=== PATIENT | female | born 1995 | race Two or more races ===

== ENCOUNTER 2016-11-11 19:47 | Emergency (ER) | payer OTHER, MEDICAID ==
[~2016-11-11] VITALS: Ht 149.9 cm; Wt 96.4 kg
[~2016-11-11 19:47] MED LIST: OXYC-302 PO
[2016-11-11 20:59] LABS: HCG UR OBC PASS
[2016-11-11] MEDS ORDERED: CEFTRIAXONE 250 MG ONE (21:25)
[2016-11-11] MEDS ORDERED: AZITHROMYCIN 250 MG TABLET ONE (21:25)
[2016-11-11] MEDS ORDERED: AZITHROMYCIN 500 MG TABLET PO ONE (21:30)
[2016-11-11] MEDS ORDERED: CEFTRIAXONE 250 MG IM ONE (21:30)
[2016-11-11 21:37] VITALS: BP 127/70
== END 2016-11-11 22:06 | disposition home or self-care (01) ==
LOC: ED 20:50
DX: R10.31 Right lower quadrant pain (principal); R30.0 Dysuria
CPT/HCPCS: 81003; 81025; 96372; 99284; J0696

== ENCOUNTER 2017-11-01 00:45 | Emergency (ER) | payer MEDICAID, OTHER ==
[~2017-11-01] VITALS: Ht 149.9 cm; Wt 107.5 kg
[2017-11-01 00:49] VITALS: BP 100/48
[2017-11-01] MEDS ORDERED: IBUPROFEN 200 MG TABLET PO ONE (02:30)
== END 2017-11-01 03:37 | disposition home or self-care (01) ==
LOC: ED 03:26
DX: M76.41 Tibial collateral bursitis [Pellegrini-Stieda], right leg (principal); M79.644 Pain in right finger(s)
CPT/HCPCS: 29260; 99284

== ENCOUNTER 2018-01-02 17:03 | Emergency (ER) | payer MEDICAID, OTHER ==
[~2018-01-02] VITALS: Ht 149.9 cm; Wt 104.2 kg
[2018-01-02 17:06] VITALS: BP 144/95
[2018-01-02] MEDS ORDERED: IBUPROFEN 200 MG TABLET ONE (17:20)
[2018-01-02] MEDS ORDERED: IBUPROFEN 200 MG TABLET PO ONE (17:30)
== END 2018-01-02 18:07 | disposition home or self-care (01) ==
LOC: ED 17:56
DX: S50.02XA Contusion of left elbow, initial encounter (principal); W22.8XXA Striking against or struck by other objects, initial encounter; Y93.89 Activity, other specified; Y99.8 Other external cause status; Y92.009 Unspecified place in unspecified non-institutional (private) residence as the place of occurrence of the external cause
CPT/HCPCS: 99284

== ENCOUNTER 2018-01-06 20:44 | Emergency (ER) | payer MEDICAID ==
[~2018-01-06] VITALS: Ht 149.9 cm; Wt 106.5 kg
[2018-01-06 21:37] LABS: BASOPHILS # (AUTO) 0.08 x10^3/uL (0-0.1); BASOPHILS % (AUTO) 1 % (0-1); EOSINOPHILS # (AUTO) 0.09 x10^3/uL (0-0.4); EOSINOPHILS % (AUTO) 1 % (1-7); LYMPHOCYTES # (AUTO) 3.68 x10^3/uL (1-3.4); LYMPHOCYTES % (AUTO) 36 % (22-44); MD NO; MEAN CORPUSCULAR HEMOGLOBIN 29.3 pg (27.0-34.8); MEAN CORPUSCULAR HGB CONC 33.6 g/dL (32.4-35.8); MEAN CORPUSCULAR VOLUME 87.2 fL (80-100); MEAN PLATELET VOLUME 8.4 fL (7.4-10.4); MONOCYTES # (AUTO) 0.54 x10^3/uL (0.2-0.8); MONOCYTES % (AUTO) 5 % (2-9); NEUTROPHILS # (AUTO) 5.89 x10^3/uL (1.8-6.8); NEUTROPHILS % (AUTO) 57 % (42-75); PLATELET COUNT 359 x10^3/uL (130-400); RED BLOOD COUNT 4.69 x10^6/uL (3.82-5.3); RED CELL DISTRIBUTION WIDTH 13.3 % (9.6-15.2)
[2018-01-06 21:48] LABS: INTERNATIONAL NORMALIZED RATIO 0.97 (0.93-1.1)
[2018-01-06 21:50] LABS: MICROSCOPIC INDICATED
[2018-01-06 21:50] LABS: ALANINE AMINOTRANSFERASE 44 U/L (12-78); ALBUMIN 3.5 g/dL (3.4-5.0); ANION GAP 7 mmol/L (5-15); CALCIUM 8.4 mg/dL (8.5-10.1); CHLORIDE 109 mmol/L (98-107)
[2018-01-06 21:51] LABS: HCG UR SG 1.031 (1.003-1.030)
[2018-01-06 21:52] LABS: ALKALINE PHOSPHATASE 85 U/L (45-117); BILIRUBIN,TOTAL 0.4 mg/dL (0.2-1.0)
[2018-01-06 22:00] LABS: CULTURE INDICATED? NO
[2018-01-06 22:53] VITALS: BP 109/74
== END 2018-01-06 22:58 | disposition home or self-care (01) ==
LOC: ED 22:08
DX: N93.9 Abnormal uterine and vaginal bleeding, unspecified (principal); R42 Dizziness and giddiness
CPT/HCPCS: 36415; 76830; 80053; 81001; 81025; 85025; 85610; 85730; 99285

== ENCOUNTER → 2018-01-15 | Outpatient (CLI) | payer OTHER, MEDICAID | END | disposition home or self-care (01) | LOC: LAB 11:28 | PROVIDERS: ATTEND Obstetrics & Gynecology | DX: N92.1 Excessive and frequent menstruation with irregular cycle (principal) | CPT/HCPCS: 36415; 82670; 83001; 83002; 84146; 84402; 84403; 84443 ==

== ENCOUNTER 2018-07-20 19:44 | Emergency (ER) | payer OTHER, MEDICAID ==
[~2018-07-20] VITALS: Ht 149.9 cm; Wt 106.9 kg
[2018-07-20 20:03] VITALS: BP 135/92
--- NOTE | 2018-07-20 20:47 | NUR ---
All results back. Pt up for recheck.
[2018-07-20] MEDS ORDERED: ALBUTEROL/IPRATROPIUM 2.5MG/0.5MG, 3 ML ONE (21:18)
[2018-07-20] MEDS ORDERED: EPINEPHRINE 1 MG/ML, 1ML ONE (21:19)
== END 2018-07-20 21:30 | disposition home or self-care (01) ==
LOC: ED 20:46
DX: J42 Unspecified chronic bronchitis (principal); B96.89 Other specified bacterial agents as the cause of diseases classified elsewhere
CPT/HCPCS: 71046; 99283

== ENCOUNTER 2019-04-16 21:36 | Emergency (ER) | payer OTHER, MEDICAID ==
[~2019-04-16] VITALS: Ht 149.9 cm; Wt 108.6 kg
[2019-04-16 21:40] VITALS: BP 129/86
[2019-04-16] MEDS ORDERED: LIDOCAINE-MPF 1%, 5ML ONE (22:10)
[2019-04-16] MEDS ORDERED: LIDOCAINE-MPF 1%, 5ML INFIL ONE (22:30)
[2019-04-16] MEDS ORDERED: LIDOCAINE 1%, 10ML INFIL ONE (22:30)
[2019-04-16] MEDS ORDERED: NEOSPORIN OINT. PKT 1 PACKET ONE ×2 (22:57→23:04)
== END 2019-04-16 23:13 | disposition home or self-care (01) ==
LOC: ED 23:07
DX: L03.032 Cellulitis of left toe (principal)
CPT/HCPCS: 10060; 99283

== ENCOUNTER 2019-04-27 10:01 | Emergency (ER) | payer OTHER, MEDICAID ==
[~2019-04-27] VITALS: Ht 149.9 cm; Wt 109.8 kg
[2019-04-27 10:17] VITALS: BP 152/87
--- NOTE | 2019-04-27 11:08 | NUR ---
PT STATES SHE STEPPED ON A METAL PIECE OF A DOG CRATE LAST NIGHT. PT STATES BLEEDING, UNKNOWN TETANUS.
[2019-04-27] MEDS ORDERED: DIPH,PERTUSS(ACELL),TET VAC/PF 0.5 ML IM-VACC ONE ×2 (11:15→11:30)
[2019-04-27] MEDS ORDERED: NEOSPORIN OINT. PKT 1 PACKET ONE (11:21)
--- NOTE | 2019-04-27 11:54 | NUR ---
Patient/Caregiver given discharge instructions and they have confirmed that they understand the instructions. Patient ambulatory with steady gait.
== END 2019-04-27 12:19 | disposition home or self-care (01) ==
LOC: ED 12:06
DX: S91.332A Puncture wound without foreign body, left foot, initial encounter (principal); X58.XXXA Exposure to other specified factors, initial encounter; Y93.89 Activity, other specified; Y92.009 Unspecified place in unspecified non-institutional (private) residence as the place of occurrence of the external cause; Y99.8 Other external cause status
CPT/HCPCS: 90471; 90715

== ENCOUNTER 2019-05-15 20:08 | Emergency (ER) | payer OTHER, MEDICAID ==
[~2019-05-15] VITALS: Ht 149.9 cm; Wt 110.8 kg
[2019-05-15 20:11] VITALS: BP 132/82
[2019-05-15] MEDS ORDERED: IBUPROFEN 600 MG TABLET ONE (20:45)
[2019-05-15] MEDS ORDERED: DIAZEPAM 5 MG TABLET ONE (20:45)
[2019-05-15] MEDS ORDERED: IBUPROFEN 200 MG TABLET ONE (20:45)
[2019-05-15] MEDS ORDERED: IBUPROFEN 200 MG TABLET PO ONE ×2 (21:00)
[2019-05-15] MEDS ORDERED: DIAZEPAM 5 MG TABLET PO ONE (21:00)
[2019-05-15] MEDS ORDERED: OXYcodone/APAP 5/325MG TABLET ONE (21:36)
[2019-05-15] MEDS ORDERED: ONDANSETRON ODT 4 MG ONE (21:36)
--- NOTE | 2019-05-15 21:40 | NUR ---
PT MEDICATED ADDITIONALLY WITH PAIN MEDS.
[2019-05-15] MEDS ORDERED: ONDANSETRON ODT 4 MG PO ONE (22:00)
[2019-05-15] MEDS ORDERED: OXYcodone/APAP 5/325MG TABLET PO ONE (22:00)
== END 2019-05-15 22:03 | disposition home or self-care (01) ==
LOC: ED 20:30
DX: M54.5 Low back pain (principal)
CPT/HCPCS: 72110; 99284; Q0162